=== PATIENT | male | born 1990 | race Caucasian/White ===

== ENCOUNTER 2016-10-15 07:23 | Emergency (ER) | payer OTHER ==
[~2016-10-15] VITALS: Ht 172.7 cm; Wt 63.0 kg
[~2016-10-15 07:23] MED LIST: METH10SO PO
[2016-10-15 07:26] VITALS: TEMP 36.7; Ht 172.7 cm; Wt 63.0 kg
[2016-10-15] MEDS ORDERED: ONDANSETRON INJ 2 MG/ML 2 ML VIAL IV STA (07:45)
[2016-10-15] MEDS ORDERED: SODIUM CHLORIDE 0.9% 1000ML 1,000 ML IV STA (07:45)
[2016-10-15] MEDS ORDERED: KETOROLAC TROMETHAMINE 30 MG/ML VIAL IV STA (07:45)
[2016-10-15] MEDS ORDERED: OPTIRAY 320 IV PRN (08:00)
[2016-10-15 08:07] LABS: BASO % 0.5 %; BASO ABS # 0.04 K/uL (0-0.2); COMPLETE YES; EOS % 1.1 %; IG% 0.2 %; LYMPH % 24.8 %; LYMPH ABS # 2.11 K/uL (1.2-3.4); MEAN CELL VOLUME 83.2 fL (80-100); MEAN CORPUSCULAR HEMOGLOBIN 26.8 pg (25-34); MEAN CORPUSCULAR HGB CONC 32.2 g/dl (32-36); MEAN PLATELET VOLUME 10.8 fL (7.4-10.4); MONO % 9.3 %; NEUT % 64.1 %; PLATELET COUNT 206 K/uL (130-400); RED BLOOD COUNT 6.01 M/uL (4.7-6.1); WHITE BLOOD COUNT 8.52 K/uL (4.8-10.8)
[2016-10-15 08:15] VITALS: O2SAT 99
[2016-10-15 08:29] LABS: ALKALINE PHOSPHATASE 113 U/L (45-117); ALT/SGPT 67 U/L (12-78); BLOOD UREA NITROGEN 10 mg/dl (7-18); BUN/CREATININE RATIO 10.2 (10-20); CALCIUM 8.8 mg/dl (8.5-10.1); CARBON DIOXIDE 28 mmol/L (21-32); CHLORIDE 104 mmol/L (98-107); CREATININE 0.94 mg/dl (0.60-1.40); GLUCOSE 115 mg/dl (70-99); SODIUM 139 mmol/L (136-145)
[2016-10-15] MEDS ORDERED: MoRPHine SULFATE 4 MG/ML 1 ML CARP\\VIAL IV STA (08:44)
[2016-10-15 09:09] LABS: POTASSIUM 3.5 mmol/L (3.5-5.1)
[2016-10-15 09:14] LABS: AST/SGOT 19 U/L (15-37)
[2016-10-15 09:55] LABS: URINE APPEARANCE CLEAR (CLEAR); URINE BILIRUBIN NEG (NEG); URINE COLOR YELLOW; URINE NITRITE NEG (NEG); URINE SPECIFIC GRAVITY 1.022 (1.000-1.030); UROBILINOGEN NEG (NEG)
[2016-10-15 10:00] LABS: MANUAL MICROSCOPIC REQUIRED? NO; REVIEW REQ? NO
[2016-10-15] MEDS ORDERED: NICOTINE 14 MG/24 HR TDSY TD ONE (10:00)
--- NOTE | 2016-10-15 10:54 | DIAGNOSTIC IMAGING REPORT ---
ABDOMEN AND PELVIS CT WITH IV AND ORAL CONTRAST CT DOSE: 283.02 mGy.cm HISTORY: Vomiting. Generalized abdominal pain. TECHNIQUE: Multiaxial CT images of the abdomen and pelvis were performed following the use of intravenous and oral contrast. COMPARISON STUDY: None. FINDINGS: The lung bases are clear. The liver, spleen, gallbladder, pancreas, kidneys, and adrenal glands are within normal limits. No bowel wall thickening or obstruction. The pelvic organs are unremarkable. No suspicious lytic or blastic osseous lesions. Normal appendix. Questionable thickening of the descending colon and sigmoid colon appears to be due to underdistention. IMPRESSION: 1. No definite bowel wall thickening or obstruction. 2. Normal appendix. Electronically signed by: Wiley Boogie M.D. 10/15/2016 10:52 AM Dictated Date/Time: 10/15/2016 10:47 AM
[2016-10-15] MEDS ORDERED: ONDA4TAB46 PO (11:18)
[2016-10-15 11:34] VITALS: BP 125/60; PULSE 85; O2SAT 98
[2016-10-15] MEDS ORDERED: ONDANSETRON HOME PACK 4MG OD TAB PO ONE (11:45)
--- NOTE | 2016-10-15 16:49 | EMERGENCY ROOM VISIT NOTE ---
ED Visit Note First contact with patient: 07:33 Chief Complaint: Abdominal pain. History of Present Illness: Mr. Headley is a 26 year-old white male who ambulates into the ED accompanied by his father complaining of bilateral upper quadrant abdominal pain. Historically patient reports no significant gastrointestinal disorders or abdominal surgeries Patient reports a acute onset of bilateral upper quadrant abdominal pain with nausea and vomiting that started approximately 2.5 hours ago. Since that time the pain has been his symptoms have been constant but his pain has waxed and waned in intensity. He reports he has an underlying achy discomfort throughout the abdomen and rates this discomfort 3/10. Then he develops random episodes of acute sharp pain and rates this discomfort 6/10. The pain is nonradiating. He has not identified any aggravating or alleviating factors related to the pain. He has not been able to take any medications for his discomfort or nausea /vomiting prior to arrival at the hospital. Additionally associated with his pain he reports he has been having chills. Patient denies fevers, sweats, skin eruptions, skin color changes, upper respiratory tract symptoms, shortness of breath, chest pain, diarrhea, constipation, rectal bleeding, black/tarry stools, urinary symptoms, hematuria, back/flank pain. Review of Systems: As noted above in history of present illness. All body systems were reviewed and found to be negative as noted above. Past Medical History: Narcotic abuse, unspecified right shoulder pain. Current Medications: Methadone. Allergies to Medications: Patient denies. Social History: Patient is currently employed; he feels safe in his home environment; he admits to tobacco and alcohol use. Physical Examination: Vital Signs: Date Time Temp Pulse Resp B/P (MAP) Pulse Ox O2 Delivery O2 Flow Rate FiO2 10/15/16 11:34 85 16 125/60 98 10/15/16 10:00 76 18 131/82 98 Room Air 10/15/16 08:15 73 18 174/87 99 Room Air 10/15/16 07:56 84 10/15/16 07:26 36.7 72 18 129/88 100 Room Air GENERAL: 26-year-old male in mild to moderate distress due to pain, nontoxic- appearing, afebrile and hemodynamically stable. NEUROLOGICAL: Awake, alert and oriented to person, place and time. Answering questions appropriately and following commands. Normal gait. Good hand eye coordination. SKIN: Warm, dry and pink. No soft tissue eruptions or trauma noted. HEENT: Atraumatic and normocephalic. PERRLA. Sclera white and conjunctiva pink. Oral cavity moist and pink. Pharynx is nonerythematous or edematous. Speech normal. No lymphadenopathy. Trachea midline. No jugular venous distention. BACK: No tenderness over the bony spine. No CVA tenderness. THORAX: Lungs sounds are clear to auscultation and equal bilaterally with symmetrical chest wall. No wheezing, rales or rhonchi. No crepitus, tenderness , subcutaneous air or deformities noted. HEART: Regular rate and rhythm. No gallops, rubs or murmurs are appreciated. ABDOMEN: Flat and firm with diffuse tenderness in all quadrants. No tenderness over McBurney's point. Negative Jeffery sign. Decreased bowel sounds in all quadrants. No guarding, rigidity or organomegaly. EXTREMITIES: Moves all extremities well on command and with purpose. All distal neurovascular statuses are intact and equal bilaterally. ED Course: Patient is assessed as noted above. Patient's medication list was reviewed. Laboratory Testing: Test 10/15/16 07:50 10/15/16 08:50 10/15/16 09:33 Range/Units White Blood Count 8.52 4.8-10.8 K/uL Red Blood Count 6.01 4.7-6.1 M/uL Hemoglobin 16.1 14.0-18.0 g/dL Hematocrit 50.0 42-52 % Mean Corpuscular Volume 83.2 80-100 fL Mean Corpuscular Hemoglobin 26.8 25-34 pg Mean Corpuscular Hemoglobin Concent 32.2 32-36 g/dl Platelet Count 206 130-400 K/uL Mean Platelet Volume 10.8 7.4-10.4 fL Neutrophils (%) (Auto) 64.1 % Lymphocytes (%) (Auto) 24.8 % Monocytes (%) (Auto) 9.3 % Eosinophils (%) (Auto) 1.1 % Basophils (%) (Auto) 0.5 % Neutrophils # (Auto) 5.47 1.4-6.5 K/uL Lymphocytes # (Auto) 2.11 1.2-3.4 K/uL Monocytes # (Auto) 0.79 0.11-0.59 K/uL Eosinophils # (Auto) 0.09 0-0.5 K/uL Basophils # (Auto) 0.04 0-0.2 K/uL RDW Standard Deviation 37.7 36.4-46.3 fL RDW Coefficient of Variation 12.6 11.5-14.5 % Immature Granulocyte % (Auto) 0.2 % Immature Granulocyte # (Auto) 0.02 0.00-0.02 K/uL Sodium Level 139 136-145 mmol/L Potassium Level 3.5 3.5-5.1 mmol/L Chloride Level 104 98-107 mmol/L Carbon Dioxide Level 28 21-32 mmol/L Anion Gap 7.0 3-11 mmol/L Blood Urea Nitrogen 10 7-18 mg/dl Creatinine 0.94 0.60-1.40 mg/dl Est Creatinine Clear Calc Drug Dose 106.1 ml/min Estimated GFR () 129.2 Estimated GFR (Non- 111.5 BUN/Creatinine Ratio 10.2 10-20 Random Glucose 115 70-99 mg/dl Calcium Level 8.8 8.5-10.1 mg/dl Total Bilirubin 0.4 0.2-1 mg/dl Direct Bilirubin < 0.1 0-0.2 mg/dl Aspartate Amino Transf (AST/SGOT) 19 15-37 U/L Alanine Aminotransferase (ALT/SGPT) 67 12-78 U/L Alkaline Phosphatase 113 45-117 U/L Total Protein 8.1 6.4-8.2 gm/dl Albumin 4.5 3.4-5.0 gm/dl Lipase 195 73-393 U/L Urine Color YELLOW Urine Appearance CLEAR CLEAR Urine pH 7.0 4.5-7.5 Urine Specific [place] 1.022 1.000-1.030 Urine Protein NEG NEG Urine Glucose (UA) NEG NEG Urine Ketones NEG NEG Urine Occult Blood NEG NEG Urine Nitrite NEG NEG Urine Bilirubin NEG NEG Urine Urobilinogen NEG NEG Urine Leukocyte Esterase NEG NEG 80 Contrast Abdominal/Pelvic CT: Was reviewed by myself and read by the radiologist showing normal-appearing liver, spleen, gallbladder, pancreas, kidney, adrenal glands and appendix. Questionable thickening of the descending and sigmoid colon of questionable etiology, no signs of bowel obstruction, normal-appearing pelvic organs, no suspicious lytic or blastic osseous lesions. Initially patient was hydrated with normal saline and received 30 mg of Toradol IV and 4 mg of Zofran IV for his symptoms. After he received his initial IV medications nursing staff approached me and reported the patient was having welts on his arms. I did reassess him and he was having diffuse small welts throughout the arm. These were not erythematous. Negative dermatographia test. He denied any allergic symptoms including sensations of throat swelling or shortness of breath. Patient was reassessed multiple times during his stay in emergency department. On his third reassessment he continued to have pain and was given 4 mg of morphine IV for pain. Additionally he reported he continued to be nauseated but had no additional episodes of vomiting. Review stay in emergency department he requested that he could be released to go smoke a cigarette; he was refused as this is a smoke free facility. Nursing personnel offered and I approved the use of nicotine patch. Patient's case was reviewed with Dr. Linn; we agreed on diagnostic approach, treatment, disposition and plan. Clinical Impression: Acute abdominal pain. Acute nausea/vomiting. Decision-Making: Initially my differential diagnosis I considered cholecystitis , pancreatitis, hepatitis, bowel obstruction, colitis, acute appendicitis and other causes. Disposition: Patient discharged home in stable condition accompanied by his parents; prior to departure he was reassessed and subjectively reported he was feeling better and rated his discomfort 3/10. Additionally he reported he was still nauseated but still had no additional episodes of vomiting while in the emergency department. Plan: Patient was encouraged to continue his current medications as prescribed per Patient was encouraged to use ibuprofen and acetaminophen as needed for pain. Patient was prescribed Zofran and instructed on use. Patient was encouraged to stay well-hydrated with increased clear fluids and to use a bland diet for the next 48 hours. Patient was encouraged to follow-up with his primary care provider for recheck in 36-48 hours. Patient was encouraged return the ED for worsening/uncontrolled pain, return of vomiting, fevers, bloody vomitus, bloody stools or any new/concerning symptoms.
== END 2016-10-15 11:37 | disposition home or self-care (01) ==
LOC: C.EDB 07:24
DX: R10.10 Upper abdominal pain, unspecified (principal); R11.2 Nausea with vomiting, unspecified; Z87.898 Personal history of other specified conditions; Z72.0 Tobacco use

== ENCOUNTER 2017-09-20 15:26 | Emergency (ER) | payer OTHER ==
[~2017-09-20] VITALS: Ht 172.7 cm; Wt 62.4 kg
[2017-09-20 15:35] VITALS: BP 121/73; TEMP 36.7; Ht 172.7 cm; Wt 62.4 kg
[2017-09-20] MEDS ORDERED: LIDOCAINE/EPINEPHRINE 1% 20 ML VIAL INFIL STA (15:49)
--- NOTE | 2017-09-20 16:07 | EMERGENCY ROOM VISIT NOTE ---
ED Visit Note First contact with patient: 15:41 Chief Complaint: "Cut on left arm". History of Present Illness: This patient is a 27-year-old male who presents to the Emergency Department via private vehicle for evaluation of their left forearm laceration. Patient sustained the laceration while operating a motor earlier today when he fell forward striking the lower with the left lateral portion of his forearm. They report a moderate amount of bleeding initially. They no any numbness or tingling into the distal extremity. Patient rates his current discomfort as a 5/10. Patient's Tetanus status is currently up-to-date. Medications: As noted below Allergies: None PMH: No pertinent SHx: Patient is employed and lives locally. ROS: All pertinent positive and negative review of systems are appropriately documented in the History of Present Illness. Physical Exam: VITAL SIGNS - Vital signs and nursing notes were reviewed. Stable GENERAL -27-year-old male appearing his stated age who is in no acute distress. Communicates well with provider and answers questions appropriately. SKIN - There is a 3 cm long laceration noted to the left proximal lateral forearm with an associated 1 cm laceration just superior to this for a total laceration length of 4 cm. The edges gape apart with traction. No foreign bodies appreciated. Upon further examination there are no deep structures including vessel, tendon, or bony structures appreciated. There is no active bleeding noted. MUSCULOSKELETAL -full range of motion of the left upper extremity noted. No neurovascular deficit appreciated. NEUROLOGIC - Spinothalamic tract was found to be intact with ability to discriminate sharp versus dull sensation. No sensory defects of the dorsal column were ED Course: Patient was seen and evaluated by myself. Risks and benefits of performing primary wound closure versus no repair were discussed with the patient who verbalizes understanding. Verbal consent was obtained prior to performing the procedure. 3 cc of 1% buffered lidocaine with epinephrine was used to anesthetize the 3+1 cm lacerations. The wound was cleansed and prepped in the typical sterile fashion utilizing normal saline and Betadine. The wound was sterilely draped. Once proper anesthetization was established, the wound was further examined and demonstrated no deep involvement, the muscle was visible but not injured. The wound was copiously irrigated with normal saline and Betadine. The wound was closed using 8 simple, 4-0 nylon sutures with the wound edges being well approximated. Patient tolerated the procedure well. No complications were met. The wound was cleansed and dressed with a Bacitracin dressing.Patient educated on worrisome symptoms for return visit to the Emergency Department. Patient discharged to home in good condition. Problem List Medical Problems: (1) No significant medical problems Status: Chronic Surgical Problems: (1) No significant past surgical history Status: Chronic Current/Historical Medications Scheduled Methadone Hcl (Methadone Hcl), 110 MG PO DAILY Allergies Coded Allergies: No Known Allergies (Unverified , 10/15/16) Vital Signs Date Time Temp Pulse Resp B/P (MAP) Pulse Ox O2 Delivery O2 Flow Rate FiO2 09/20/17 15:35 36.7 68 18 121/73 96 Room Air Departure Information Impression Primary Impression: Laceration Dispostion Home / Self-Care Condition GOOD Referrals Alaina Swain C.R.N.P (PCP) Patient Instructions My [facility] Additional Instructions Discharge Instructions: You have received 8 sutures on your left forearm. These sutures are NOT dissolvable and WILL need to be removed by a health care provider in 12 days. You can return to the Emergency Department or contact your Primary Care Provider to have the sutures removed. Proper wound care is essential for adequate wound healing and infection prevention. You can shower and clean the wound with soap and water. Do not scour over the wound, pat dry with a towel. Do not submerse the wound (i.e. bathe or dish wash) until the sutures have been removed. You can use an antibiotic ointment with a dressing over the wound for the next 3-4 days. After this time you may leave the wound dry and open to the air. If crust develops over the wound you can use a Q-tip to apply a 1:1 peroxide:water solution to clean the wound. Look for signs of infection of the wound including: increased pain, swelling, foul discharge, streaking, or increased temperature. If any of these are noticed you should return to the Emergency Department for further assessment and treatment. As with any laceration you may have received nerve damage to the surrounding tissues. This damage may or may not be permanent. You should keep the area covered with sunscreen for the first 6 months to 1 year when at risk for exposure to help minimize scarring. You can also use scar reducing creams or Vitamin E oil to help minimize scarring. For pain control, you can use the following [id number] medicines (if >12 yo): - Regular strength (325mg/tab) Tylenol (acetaminophen) 2 tabs every 4-6 hours as needed. Do not exceed 12 tablets in a 24 hour period. Avoid taking more than 3 grams (3000 mg) of Tylenol per day. This includes any other sources of acetaminophen you may take on a regular basis. - Regular strength (200 mg/tab) Advil (ibuprofen) 1-2 tabs every 4-6 hours as needed. Do not exceed a dose of 3200 mg per day. Return to the emergency department if your symptoms worsen despite treatment course outlined above.
[2017-09-20 16:47] VITALS: PULSE 74; O2SAT 97
== END 2017-09-20 16:48 | disposition home or self-care (01) ==
LOC: C.EDB 15:28 → C.EDD 16:48
DX: S51.812A Laceration without foreign body of left forearm, initial encounter (principal); W45.8XXA Other foreign body or object entering through skin, initial encounter; Y93.89 Activity, other specified; Z79.899 Other long term (current) drug therapy